=== PATIENT | female | born 1940 | race Caucasian/White ===

== ENCOUNTER 2018-05-16 09:56 | Day surgery (SDC) | payer MEDICARE, BC ==
[2018-05-15 15:11] VITALS: BMI 36.8
[2018-05-16] MEDS ORDERED: PROPOFOL 200 MG/20 ML VIAL ONE (15:11)
--- NOTE | 2018-05-16 15:35 | MRI ---
MRI CERVICAL SPINE NONCONTRAST: Date: 05/16/18 HISTORY: 78-year-old female with cervical radiculopathy and cervicalgia. COMPARISON: None. FINDINGS: No major bone marrow signal abnormality. Vertebral body heights are maintained. The cervical spinal c ord is normal in size and signal. No Chiari I malformation. Multilevel mild and moderate degenerative facet changes throughout all levels. C1-2: No additional findings. C2-3: No additional findings. C3-4: No additional findings. C4-5: Disc space maintained. Small central disc protrusion or focal disc/osteophyte complex indents the kahlil tral aspect of the thecal sac without causing significant central spinal canal stenosis. The right fa cet complex is enlarged. The right facet joint space has fluid, and the facet articular surfaces are irregular. Mild bone marrow edema of the right facet complex. Mild soft tissue edema around, especial ly posterior, to this right facet complex. Moderate right neural foraminal stenosis. Mild to moderate left neural foraminal stenosis. C5-6: Moderate to severe disc space narrowing. Prominent broad based disc-osteophyte complex protrudes into the anterior aspect of the spinal canal, indenting the spinal cord, and causing moderate central spi nal canal stenosis. Moderate size bilateral uncinate process osteophytes encroach upon the bilateral neural foramina, causing mild to moderate right neural foraminal stenosis and moderate to severe left neural foraminal stenosis. C6-7: Moderate disc space narrowing. Prominent central disc-osteophyte complex indents the ventral aspect o f the spinal cord. There is also milder broad based component of the disc-osteophyte complex. Overall mild to moderate central spinal canal stenosis. Mild right neural foraminal stenosis and mild to mod erate left neural foraminal stenosis due to small bilateral uncinate process osteophytes. C7-T1: Disc space maintained. Moderate right degenerative facet changes. No central stenosis. No high grade neural foraminal stenosis. IMPRESSION: 1. Cervical spondylosis, consisting of moderate degenerative disc disease at C5-6 and C6-7, and mult ilevel bilateral facet osteoarthrosis of varying degrees, mostly moderate. 2. 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 3. Disc-osteophyte complexes indenting the spinal cord at C5-6 and C6-7. POS: [facility]
--- NOTE | 2018-05-16 16:00 | MRI ---
MRI LUMBAR SPINE NONCONTRAST: DATE: 05/16/18 HISTORY: 78-year-old female with low back pain and right lumbar radiculopathy. COMPARISON: None available. FINDINGS: The vertebral body heights are maintained. Disc spaces are maintained. There is no major spondylolist hesis. There is a hemangioma bone involving the right posterior body of T12. Otherwise, the bone audrey ow signal is normal. The conus medullaris terminates at L2. T12-L1: Normal. L1-2: Normal. L2-3: Mild degenerative facet changes. Otherwise normal. L3-4: Mild degenerative facet changes, with bilateral facet joint effusions. Otherwise normal. L4-5: Mild bilateral degenerative facet changes with bilateral facet joint effusions. Moderate bilate ral neural foraminal stenosis. No central stenosis. L5-S1: Moderate to severe bilateral degenerative facet changes. Minimal grade I anterolisthesis of L5 on S1. Mild bilateral neuroforaminal stenosis. No central stenosis. IMPRESSION: 1. High grade facet osteoarthrosis at L5-S1 causing minimal grade I spondylolisthesis at that le richy. 2. Mild to moderate facet osteoarthrosis at other levels. 3. No degenerative disc disease, no central spinal canal stenosis, and no curtis nerve root impin gement, at any level. ESTHER Worthy POS: [facility]
== END 2018-05-16 14:30 | disposition home or self-care (01) ==
LOC: SDC/OP 09:56
PROVIDERS: ATTEND Neurological Surgery
DX: M54.12 Radiculopathy, cervical region (principal); M54.16 Radiculopathy, lumbar region; Z79.899 Other long term (current) drug therapy; Z88.5 Allergy status to narcotic agent
CPT/HCPCS: 72141; 72148; J2704

== ENCOUNTER 2018-09-17 08:05 | Outpatient (CLI) | payer MEDICARE, BC ==
--- NOTE | 2018-09-17 10:38 | CT ---
CT ANGIOGRAM HEAD: CT ANGIOGRAM NECK: 09/17/2018 HISTORY: Dizziness and giddiness. Frequent falls with unsteady gait. Assess for arterial stenosis. TECHNIQUE: Axial CT imaging at 5 mm intervals from the vertex through the skull base performed without contrast. Subsequently, axial CT imaging at 1.25 mm intervals obtained with IV contrast, using a CT angiogram protocol, from the vertex through the lung apices, with coronal and sagittal 3D reformatted imaging. FINDINGS: Noncontrast enhanced head CT demonstrates no intracranial hemorrhage, midline shift, mass effect, or ventricular enlargement. The paranasal sinuses/mastoid air cells are grossly unremarkable. No acute osseous abnormality is se en. The visualized lung apices are unremarkable. The retroantral and parapharyngeal fat appear clear bilaterally. Bilateral submandibular and parotid glands are grossly unremarkable. Limited assessment of thyroid gland, thyroid cartilage, cricoid cartilage, hyoid bone, tonsillar pill ars, epiglottis, and preepiglottic fat appears unremarkable as well. No lymphadenopathy is noted in the neck. The origin of the innominate artery, the left common carotid artery, and the left subclavian artery a ppears unremarkable. The origin of the right subclavian and right common carotid artery appears unremarkable as well. No stenosis is noted at the origin of the right vertebral artery. There is probable mild stenosis at the origin of the left vertebral artery. The proximal left vertebral artery is tortuous. The right vertebral artery is dominant. Bilateral vertebral arteries are otherwise unremarkable, with no hemo dynamically significant stenosis. The proximal aspect of the bilateral common carotid arteries demonstrates significant tortuosity. On the bases of NASCET criteria, there is no hemodynamically significant stenosis involving the common carotid artery or the internal carotid artery on either side. Bilateral distal internal carotid arteries are tortuous. There is minimal calcified plaque at the origin of the left internal carotid artery. The basilar artery is patent. Branches of the basilar artery appear unremarkable. There is mild atherosclerotic calcification involving the cavernous carotid arteries bilaterally. The ICA bifurcation appears unremarkable bilaterally. The left A1 segment is hypoplastic. Distal AC A branches appear within normal limits. The M1 segment and the bilateral MCA bifurcation appear unre markable. No saccular aneurysm, high-grade stenosis, or vascular occlusion is seen involving the ant erior or posterior circulation. Review of the osseous structures demonstrates degenerative change at the atlantoaxial interspace. Th ere is minimal anterolisthesis at C4-C5, and there is degenerative endplate change with posterior ost eophyte formation and disk space narrowing at C5-C6 and C6-C7. Scattered bilateral facet hypertrophy is noted. There is no worrisome lytic or blastic bone lesion within the imaged osseous structures. IMPRESSION: 1. No hemodynamically significant stenosis, on the basis of NASCET criteria, noted within the neck. 2. CT angiogram of the head demonstrates no saccular aneurysm, high-grade stenosis, or vascular occl usion. POS: [facility]
== END 2018-09-17 08:06 | disposition home or self-care (01) ==
LOC: CT 08:05
PROVIDERS: ATTEND Neurological Surgery
DX: R42 Dizziness and giddiness (principal)
CPT/HCPCS: 70496; 70498; 82565

== ENCOUNTER 2022-10-04 10:53 | Outpatient (CLI) | payer MEDICARE, BC | END 2022-10-04 10:54 | disposition home or self-care (01) | LOC: BICRAD 10:53 | PROVIDERS: ATTEND Specialist | DX: M47.12 Other spondylosis with myelopathy, cervical region (principal); M43.12 Spondylolisthesis, cervical region | CPT/HCPCS: 72050 ==

== ENCOUNTER 2023-01-01 14:05 | Outpatient (CLI) | payer MEDICARE, BC | END 2023-01-01 14:06 | disposition home or self-care (01) | LOC: SCSMRI 14:05 | PROVIDERS: ATTEND Specialist | DX: S22.069A Unspecified fracture of T7-T8 vertebra, initial encounter for closed fracture (principal); M43.8X4 Other specified deforming dorsopathies, thoracic region | CPT/HCPCS: 72146 ==